=== PATIENT | female | born 1995 | race Hispanic/Latino ===

== ENCOUNTER 2017-11-22 19:37 | Emergency (ER) | payer MEDICAID, OTHER | END 2017-11-22 20:57 | disposition home or self-care (01) | LOC: EDH 19:37 | DX: M54.2 Cervicalgia (principal); M25.512 Pain in left shoulder | CPT/HCPCS: 99281 ==

== ENCOUNTER 2021-01-10 08:43 | Inpatient (IN) | payer MEDICAID ==
[~2021-01-10] VITALS: Ht 160 cm; Wt 78.5 kg
[2021-01-10 09:23] LABS: BILIRUBIN,URINE Negative (NEGATIVE); COLOR,URINE Yellow (YELLOW); GLUCOSE, URINE (UA) Negative (NEGATIVE); KETONES,URINE Negative (NEGATIVE); LEUKOCYTE ESTERASE ,URINE Trace (NEGATIVE); NITRATE,URINE Negative (NEGATIVE); OCCULT BLOOD,URINE Trace (NEGATIVE); PH,URINE 8.5 (5.0-8.0); PROTEIN,URINE Negative (NEGATIVE); UROBILINOGEN,URINE 0.2 mg/dL (0.2-1.0)
[2021-01-10 09:35] LABS: APPEARANCE,URINE CLEAR (CLEAR)
[2021-01-10 09:39] LABS: BACTERIA,URINE Rare /HPF (None Seen); RBC,URINE 0-1 /HPF (0-1); SQUAMOUS EPITHELIAL CELL,UR Rare /HPF (0-2); WBC,URINE 0-1 /HPF (0-1)
[2021-01-10] MEDS ORDERED: LACTATED RINGERS 1000ML 1,000 ML IV ONE (09:41)
[2021-01-10] MEDS ORDERED: PROMETHAZINE HCL 25 MG/ML 1ML AMPULE IM PRN (10:00)
[2021-01-10] MEDS ORDERED: OXYTOCIN-LR 20 UNITS/1000 ML 1,000 ML IV SCH ×3 (10:00→11:00)
[2021-01-10] MEDS ORDERED: LACTATED RINGERS 1000ML 1,000 ML IV PRN (10:00)
[2021-01-10] MEDS ORDERED: MEPERIDINE-PF 50 MG/ML SYG IVP PRN (10:00)
[2021-01-10 10:02] LABS: HEMATOCRIT 39.5 % (36-48); MEAN CORPUSCULAR HEMOGLOBIN 31.9 pg (27.0-33.0); MEAN CORPUSCULAR HGB CONC 35.4 g/dL (32.0-36.0); RED BLOOD CELL COUNT(AUTO) 4.39 MIL/uL (4.00-5.50); RED CELL DISTRIBUTION WIDTH 12.7 % (11.0-15.5)
[2021-01-10] MEDS ORDERED: BENZOCAINE/LANOLIN/ALOE VERA 60 ML AEROSOL TP PRN (11:00)
[2021-01-10] MEDS ORDERED: ACETAMINOPHEN WITH CODEINE 1 TAB TAB PO PRN (11:00)
[2021-01-10] MEDS ORDERED: DIPH,PERTUSS(ACELL),TET VAC/PF 0.5 ML VIAL IM PRN (11:00)
[2021-01-10] MEDS ORDERED: WITCH HAZEL 1 PAD TP PRN (11:00)
[2021-01-10] MEDS ORDERED: ACETAMINOPHEN 325 MG TAB PO PRN (11:00)
[2021-01-10] MEDS ORDERED: LANOLIN 30GM OINTMENT TP PRN (11:00)
[2021-01-10] MEDS ORDERED: MEASLES/MUMPS/RUBELLA VACCINE, LIVE 0.5 ML/VIAL SQ PRN (11:00)
[2021-01-10 12:56] VITALS: BP 125/69
[2021-01-10] MEDS ORDERED: PREN-61 PO (15:27)
[2021-01-10] MEDS: IBUPROFEN 600 MG TABLET PO PRN (15:51)
[2021-01-10] MEDS ORDERED: FLU VACC QS2021-22(6MOS UP)/PF 60 MCG/0.5 ML ML IM ONE (16:30)
[2021-01-10 16:39] VITALS: BP 128/79
[2021-01-10 20:05] VITALS: BP 122/70
[2021-01-10] MEDS: DOCUSATE SODIUM 100 MG CAP PO SCH (22:05)
[2021-01-10 23:20] VITALS: BP 119/86
[2021-01-11 03:08] VITALS: BP 123/75
[2021-01-11] MEDS ORDERED: FLU VACC QS2021-22(6MOS UP)/PF 60 MCG/0.5 ML ML IM ONE (03:30)
[2021-01-11] MEDS: IBUPROFEN 600 MG TABLET PO PRN ×2 (03:32→09:03)
[2021-01-11 06:48] LABS: HEMATOCRIT 33.2 % (36-48); MEAN CORPUSCULAR HEMOGLOBIN 32.4 pg (27.0-33.0); MEAN CORPUSCULAR HGB CONC 33.7 g/dL (32.0-36.0); RED BLOOD CELL COUNT(AUTO) 3.46 MIL/uL (4.00-5.50); RED CELL DISTRIBUTION WIDTH 13.1 % (11.0-15.5); WHITE BLOOD COUNT (AUTO) 10.8 K/uL (4.8-10.8)
[2021-01-11 07:15] LABS: HEPATITIS Bs ANTIGEN SCREEN P Negative (Negative)
[2021-01-11 07:16] VITALS: BP 131/81
[2021-01-11] MEDS: DOCUSATE SODIUM 100 MG CAP PO SCH (09:00)
[2021-01-11 09:08] LABS: RAPID PLASMA REAGIN NONREACTIVE (NONREACTIVE)
[2021-01-11 11:30] VITALS: BP 113/63
[2021-01-11] MEDS ORDERED: IBUP-2077 PO (14:20)
== END 2021-01-11 16:00 | disposition home or self-care (01) | DRG 560 ==
LOC: EDH 08:43 → OBSVTOIN 08:44 → LDH 08:44 → WSH 12:54
PROVIDERS: ADMIT Obstetrics & Gynecology; ATTEND Obstetrics & Gynecology
PROC: 10E0XZZ Delivery of Products of Conception, External Approach (ICD-10-PCS; principal; 2021-01-10)
PROC: 3E02340 Introduction of Influenza Vaccine into Muscle, Percutaneous Approach (ICD-10-PCS; 2021-01-10)
DX: O80 Encounter for full-term uncomplicated delivery (principal); Z23 Encounter for immunization; Z37.0 Single live birth; Z3A.38 38 weeks gestation of pregnancy
CPT/HCPCS: 36415; 81001; 85027; 86592; 86701; 86850; 86900; 86901; 87340; 87390; G0378; J2590; J7120; Q2035